=== PATIENT | male | born 1960 | race Caucasian/White ===

== ENCOUNTER 2020-03-04 17:14 | Emergency (ER) | payer MEDICARE, BC, SELFPAY ==
[2020-03-04 17:16] VITALS: BP 131/72; PULSE 59; RESP 14; TEMP 37; O2SAT 99; BMI 32.1
--- NOTE | 2020-03-04 17:21 | CT_ITS ---
STUDY: CT ABDOMEN AND PELVIS WITHOUT CONTRAST REASON FOR EXAM: Male, 60 years old. EPIGASTRIC PAIN -- RIGHT KIDNEY TRANSPLANT RADIATION DOSAGE (If Supplied By Facility): CTDIvol = ( 16.31 ) mGy, DLP = ( 912.92 ) mGycm TECHNIQUE: Transaxial images were obtained from the dome of the diaphragm to the symphysis pubis without oral contrast, and without intravenous contrast. Sagittal and coronal images were reconstructed. Individualized dose optimization techniques were used for this CT. COMPARISON: None. FINDINGS: The visualized lung bases are unremarkable. The visualized portions of the heart are within normal limits. Normal liver. Normal gallbladder and extrahepatic biliary system. Spleen is enlarged measuring 16 cm in diameter. Normal pancreas. There is a 2.1 x 2 cm right adrenal gland nodular lesion. There is low density within the adrenal gland. Left gland is normal. There is bilateral renal atrophy. There are multiple bilateral renal cysts. 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 There is stranding around the right transplant kidney. Punctate 2 mm calculus present 6 mm hyperdensity within the transplant kidney. Multiple surgical clips within the pelvis. Normal visualized stomach. Normal small intestine. There is colonic distention. There is a large colonic fecal load. The appendix is not visualized. Normal abdominal aorta. Normal inferior vena cava. Normal retroperitoneum. Normal urinary bladder. Normal abdominal wall. There are multilevel degenerative changes of the lumbar spine. There is multilevel disc osteophyte complexes, central canal and foraminal stenoses. There are mild degenerative changes of the SI joints CT/Abdomen/Pelvis without Cont IMPRESSION: 2.1 x 2 cm likely right adrenal adenoma Splenomegaly Bilateral renal atrophy, bilateral renal cysts Right transplant pelvic kidney with stranding around the kidney suspicious for pyelonephritis and/or transplant rejection. Further evaluation with Ultrasound should be considered 2 mm right renal calculus 6 mm right renal hyperdensity likely hemorrhagic cyst Large colonic fecal load, mild colonic distention likely fecal impaction Electronically Signed: Praveen Groves, at 18:51 EDT Tel , Service support ,
--- NOTE | 2020-03-04 17:21 | EKG12_ITS ---
Test Reason : ABD PAIN Blood Pressure : / mmHG Vent. Rate : 057 BPM Atrial Rate : 057 BPM P-R Int : 166 ms QRS Dur : 096 ms QT Int : 418 ms P-R-T Axes : 043 016 -16 degrees QTc Int : 406 ms Sinus bradycardia Left ventricular hypertrophy with repolarization abnormality Abnormal ECG Confirmed by PHUONG MEAD, VICENTE ([id number]), medical transcription editor ISAAC ARSHAD ([id number] on 03/08/2020 8:34:11 AM Referred By: ANITRA Confirmed By:VICENTE BACA MD
[2020-03-04 17:55] LABS: Bacteria 0 SEEN /hpf (None Seen); White Blood Cells 0 SEEN /hpf (0-5)
[2020-03-04] MEDS: Ondansetron 4 MG/2 ML Vial IV (18:02)
[2020-03-04] MEDS: morphine 8 MG/ML Syringe IV (18:02)
[2020-03-04] MEDS: 0.9% Normal Saline 1,000 ML 125 ML IV (18:02)
--- NOTE | 2020-03-04 18:03 | ED.VIS.GEN ---
History of Present Illness Chief Complaint: Abd Pain Informant: Patient Onset: Weeks Narrative: Coronavirus national emergency no exposures history of renal transplant right pelvis hospital November 2019 no complications Patient reports complaint of right upper quadrant pain for about 1 week nothing triggers it or alleviates it is simply there he had the renal transplant as above no complications he is making normal amounts of urine, he is eating and drinking bowel bladder habits unremarkable no fever no cough no exposures to coronavirus he is at has active hepatitis C he is currently on Harvoni, his transplant physicians believe his right upper quadrant pain is possibly to the Harvoni and they are considering adjustments he presents for evaluation he indicates had a prior appendectomy prior to the renal transplant years ago he has no history of hepatobiliary dysfunction otherwise he is eating and drinking well no fever no cough Past Medical History - Allergies and Home Meds Allergies/Adverse Reactions: Allergies shellfish derived Allergy (Verified 03/04/20 17:15) Anaphylaxis latex Adverse Reaction (Verified 03/04/20 17:15) Rash Primary Care Physician: Julieta Cr MD [Primary Care Provider] - Past Medical History: - - Includes as above Smoking Status: Former smoker Review of Systems General: Denies: Chills, Fever, Sweats Eyes: Denies: Visual changes - bilaterally, Diplopia ENT: Denies: Rhinorrhea, Sore throat Cardiovascular: Denies: Chest pain, Palpitations Respiratory: Denies: Dyspnea, Cough, Dyspnea on exertion Gastrointestinal: Reports: Abdominal pain. Denies: Nausea, Vomiting, Diarrhea, Melena, Hematochezia Genitourinary: Denies: Dysuria, Hematuria, Frequency Musculoskeletal: Denies: Back pain, Extremity Pain Skin: Denies: Rash, Wounds Neurological: Denies: Headache, Weakness, Numbness Physical Exam Vital Signs/Narrative: Vital Signs Temp Pulse Resp BP Pulse Ox 03/04/20 17:16 98.6 F 59 L 14 131/72 H 99 General: Well nourished, Well developed, No Acute Distress Head: Normocephalic, Atraumatic Eyes: Perrl, EOMI ENT: Moist mucous membranes, No rhinorrhea Neck: Supple, Nontender Cardiovascular: Regular rate, Regular rhythm, No murmurs Respiratory: No distress, CTA bilaterally, Chest nontender Abdomen: Soft, Nontender, Nondistended, Normal bowel sounds, - - The patient is in no distress is very mild pain to the right upper quadrant no rebound or guarding Back: Nontender, Normal Inspection Extremities: Nontender, No edema Skin: Normal color, No rash Neurological: Alert, Oriented x3, Cranial nerves II-XII grossly intact, Normal Strength, Normal Sensation Psychological: Normal affect, Normal Mood Diagnostic/Tx/Re-eval - Medical Decision Making Given all the above screening labs CT IV fluids Patient screening labs are generally unremarkable his hemoglobin is about 8.8 the last lab we have on him it was about 9.9, the CT shows multiple abnormalities and findings please see that report it also mentions the concept of stranding around the transplanted kidney what appears to be a possible right adrenal adenoma and a considerable amount of stool load in the colon, The patient's liver enzymes are slightly elevated there are really no recent labs for all the above comparisons here at this facility Discussed all of the above with the patient he indicates he is having normal bowel and bladder habits I discussed that part of his symptomatology may relate the fact that he is constipated versus other occult conditions we discussed inpatient versus outpatient management he wants to go home he is able to schedule outpatient follow-up with his transplant team bland diet return for change in symptoms I should mention his creatinine is 1.2 and his UA was unremarkable and he has had no difficulty voiding or making normal volume of urine, further he has no tenderness over the right lower quadrant where the transplant kidney is located, I did discuss with him the concept of possible transplant rejection he understands the above and will follow-up with his transplant physician team tomorrow or the next day Home stable Final impression right upper abdominal pain etiology unclear history of transplanted kidney, constipation other abnormalities on CT ED Disposition - Plan for ED Patient: Instructions: ED Unknown Causes of Abdominal Pain Male Referrals: Julieta Cr MD [Primary Care Provider] - Additional Instructions: Please follow-up with your transplant team tomorrow return for change in symptoms
[2020-03-04] MEDS: Mag Hydrox/Al Hydrox/Simeth 30 ML UDC PO (18:04)
[2020-03-04 18:08] LABS: Color, Urine Yellow (Yellow); Glucose, Dipstick Normal (Normal); Ketone-Dipstick Negative (Negative); Leukocyte Esterase-Dipstick Negative /ul (Negative); Nitrite-Dipstick Negative (Negative); Occult Blood-Urine Negative /ul (Negative); Protein-Dipstick 30 mg/dl (Negative); Specific Gravity, Urine 1.015 (1.002-1.030); Urine Bilirubin Dipstick Negative (Negative); Urine Clarity Clear (Clear); Urine Urobilinogen 12 mg/dl (Normal)
[2020-03-04 18:17] LABS: ALB/GLOB Ratio 1.4 RATIO (0.9-2.4); AST(SGOT) 47 U/L (15-37); Absolute Lymphocyte Count 1.49 X10^3/uL (0.83-4.51); Alanine Aminotransfer ALT/SGPT 63 U/L (16-61); Albumin, Serum 3.7 g/dL (3.2-5.0); Alkaline Phosphatase 150 U/L (45-117); Anion Gap 4 (5-15); BUN 19 mg/dL (7-18); BUN/Creat Ratio 15.8 RATIO (10-20); Basophil# 0.02 X10^3/uL; Basophil% 0.5 % (0-1); Calcium,Total 9.3 mg/dL (8.5-10.1); Chloride 113 mmol/L (98-107); EST Glomerular Filtration Rate 66 mL/min (>60); Eosinophil# 0.03 X10^3/uL; Eosinophils% 0.8 % (0-5); Est Glom Filt Rate - Afr Amer 79 mL/min (>60); Estimated Creatinine Clearance 69.72 ml/min; Globulin 2.7 g/dL (2.2-4.2); Glucose 77 mg/dL (74-106); Hematocrit 25.3 % (40-54); Hemoglobin 8.2 g/dL (13.0-16.5); Lipase 149 U/L (73-393); Lymphocyte # 1.49 X10^3/ul (4.0); Lymphocyte % 37.8 % (19-41); Mean Corp Hgb Conc 32.4 g/dL (32-36); Mean Corpuscular Hgb 32.7 pg (27.0-32.0); Mean Corpuscular Volume 100.8 fL (80-94); Mean Platelet Vol. 10.9 fl (6.2-12.0); Monocyte# 0.39 X10^3/uL; Monocyte% 9.9 % (0-10); NRBC Flagged by Analyzer 0 % (0-5); Neutrophil # 1.96 X10^3/uL (2.7-7.7); Neutrophil % 49.7 % (47-70); POSITIVE MORPHOLOGY YES; Platelet Count 103 K/mm3 (150-450); Potassium 4.1 mmol/L (3.5-5.1); Protein, Total 6.4 g/dL (6.4-8.2); RBC Distribution Width SD 67.5 fl (35.1-43.9); Red Blood Count 2.51 M/mm3 (4.6-6.2); Sodium Level 142 mmol/L (136-145); White Blood Count 3.9 K/mm3 (4.4-11.0)
[2020-03-04 18:36] LABS: Differential Indicated SCAN CRITERIA MET
[2020-03-04 18:47] VITALS: BP 135/62; PULSE 57; RESP 14; O2SAT 96
[2020-03-04 18:56] LABS: Differential Comment SCANNED
[2020-03-04 18:57] LABS: Anisocytosis 1+; Microcytosis RARE; Reactive Lymphocyte RARE
[2020-03-04 19:02] LABS: Squamous Epithelial Cells - UA 0-5 SEEN /hpf (0-5)
[2020-03-04 19:04] LABS: Red Blood Cells-Urine 0-5 SEEN /hpf (0-5)
[2020-03-04 19:05] LABS: Fine Granular Cast- Urine 0-5 SEEN /lpf (0-5)
[2020-03-04 19:06] LABS: Mucous, Urine RARE /hpf (<or=2+)
[2020-03-04 19:07] LABS: Hyaline Cast 0-5 SEEN /lpf (0-5)
[2020-03-04 19:39] VITALS: BP 147/82; PULSE 58; RESP 18; O2SAT 98
== END 2020-03-04 19:40 | disposition home or self-care (01) ==
PROVIDERS: Emergency Provider Emergency Medicine; PCP Internal Medicine
DX: R10.11 Right upper quadrant pain (principal); K59.00 Constipation, unspecified; R93.5 Abnormal findings on diagnostic imaging of other abdominal regions, including retroperitoneum; Z94.0 Kidney transplant status; Z87.891 Personal history of nicotine dependence
CPT/HCPCS: 74176; 80053; 81001; 83690; 84484; 85025; 93005; 96361; 96374; 96375; 99284; J7030; J2405